=== PATIENT | female | born 1995 | race Two or more races ===

== ENCOUNTER → 2023-01-17 | Emergency (ER) | payer OTHER ==
[~2023-01-17] VITALS: Ht 182.9 cm; Wt 70.3 kg
== END | disposition home or self-care (01) ==
LOC: ER 09:26
DX: S01.02XA Laceration with foreign body of scalp, initial encounter (principal); W18.2XXA Fall in (into) shower or empty bathtub, initial encounter; Y93.F1 Activity, caregiving, bathing; Y92.012 Bathroom of single-family (private) house as the place of occurrence of the external cause

== ENCOUNTER 2024-10-21 22:31 | Emergency (ER) | payer OTHER ==
[~2024-10-21] VITALS: Ht 182.9 cm; Wt 73.9 kg
[2024-10-21] MEDS ORDERED: METHYLPREDNISOLONE SOD SUCC 125 MG VIAL IV STA (22:56)
[2024-10-21] MEDS ORDERED: DIPHENHYDRAMINE HCL 50 MG in 0.9 % SODIUM CHLORIDE 50 ML IV STA (22:57)
[2024-10-21] MEDS ORDERED: EPINEPHRINE HCL/PF 1 MG/ML AMPUL SUBCUTANEO STA (23:37)
[2024-10-21] MEDS ORDERED: FAMOtidine 10 MG/ML (4ML VIAL) IV PUSH STA (23:37)
== END 2024-10-22 00:19 | disposition home or self-care (01) ==
LOC: ER
DX: R21 Rash and other nonspecific skin eruption (principal); T78.40XA Allergy, unspecified, initial encounter